=== PATIENT | female | born 1945 | race Caucasian/White ===

== ENCOUNTER → 2017-12-27 | Outpatient (CLI) | payer OTHER, MEDICARE | LOC: CIMAGING 10:04 | PROVIDERS: ATTEND Physician Assistant Surgical | DX: Z09 Encounter for follow-up examination after completed treatment for conditions other than malignant neoplasm (principal); Z98.1 Arthrodesis status | CPT/HCPCS: 72080-PO ==

== ENCOUNTER → 2018-04-06 | Outpatient (CLI) | payer OTHER, MEDICARE | LOC: CIMAGING 13:18 | PROVIDERS: ATTEND Physician Assistant Surgical | DX: Z98.1 Arthrodesis status (principal) | CPT/HCPCS: 72100-PO ==